=== PATIENT | female | born 2000 | race Caucasian/White ===

== ENCOUNTER 2023-05-31 15:11 | Emergency (ER) | payer BC ==
[2023-05-31 15:44] VITALS: BP 159/87; PULSE 105; RESP 17; TEMP 99.4; BMI 37.3
[2023-05-31] MEDS ORDERED: IBUPROFEN 600 MG TABLET (FP) PO ONE ×2 (15:44→15:49)
== END 2023-05-31 16:43 | disposition home or self-care (01) ==
LOC: FER 15:11
PROC: 2W3MX1Z Immobilization of Left Lower Extremity using Splint (ICD-10-PCS; principal; 2023-05-31)
DX: S93.402A Sprain of unspecified ligament of left ankle, initial encounter (principal); M25.572 Pain in left ankle and joints of left foot; W18.49XA Other slipping, tripping and stumbling without falling, initial encounter; Y93.01 Activity, walking, marching and hiking; Y92.009 Unspecified place in unspecified non-institutional (private) residence as the place of occurrence of the external cause
CPT/HCPCS: 73610-TC-LT-FY; 99283-25